=== PATIENT | male | born 1975 | race Caucasian/White ===

== ENCOUNTER 2017-01-16 08:06 | Emergency (ER) | payer OTHER ==
[2017-01-16] MEDS ORDERED: CETIRIZINE 10 MG TABLET PO STA (08:17)
[2017-01-16] MEDS ORDERED: DEXAMETHASONE 10 MG/ML VIAL IVP STA (08:17)
[2017-01-16] MEDS ORDERED: FAMOTIDINE 20 MG/50 ML 50 ML IV ONE ×2 (08:18→08:31)
--- NOTE | 2017-01-16 08:22 | ED Physician Documentation ---
History of Present Illness - Stated complaint Stated Complaint: ALLERGIC REACTION - Chief complaint Chief Complaint: Allergic Rx - Additonal information Additional information: hx from pt 41 male hx recurrent allergic / anaphylactic rxn unknown trigger despite allergy work up including skin testing carries an epi pen at all times was being txed with xolair as well not on ACEI this AM had lower lip and right face swelling went to [facility] and was sent to ER by [facility] no meds given yet pt has his epi pen but has no tongue or throat swelling no PITA so did not use Review of Systems Constitutional: denies: Fever, Chills Ears: reports: Other (swelling) Respiratory: denies: Dyspnea GI: denies: Abdominal Pain, Nausea, Vomiting Immunocompromised: denies: Immunocompromised PD PAST MEDICAL HISTORY - Past Medical History Past Medical History: No - Past Surgical History Past Surgical History: Yes - Present Medications Home Medications: Ambulatory Orders Medication Instructions Recorded Confirmed Cetirizine [ZyrTEC] 10 mg PO DAILY 01/16/17 01/16/17 Cetirizine [ZyrTEC] 10 mg PO DAILY #5 tablet 01/16/17 predniSONE [Deltasone] 60 mg PO DAILY 5 Days tablet 01/16/17 raNITIdine [Zantac] 150 mg PO BID #10 tablet 01/16/17 raNITIdine [Zantac] 150 mg PO DAILY 01/16/17 01/16/17 - Allergies Allergies/Adverse Reactions: Allergies Allergy/AdvReac Type Severity Reaction Status Date / Time No Known Drug Allergies Allergy Verified 01/16/17 08:15 - Social History Does the pt smoke?: No Smoking Status: Never smoker Does the pt drink ETOH?: No Does the pt have substance abuse?: No - Immunizations Immunizations are current?: Yes PD ED PE NORMAL - Vitals Vital signs reviewed: Yes - General General: Alert and oriented X 3 - HEENT HEENT: Other (+ lip swelling but not tongue or uvula) - Cardiac Cardiac: RRR - Respiratory Respiratory: No respiratory distress, Clear bilaterally, Other (no wheeze or stridor) - Derm Derm: Normal color, Other (no hives) - Neuro Neuro: Alert and oriented X 3 - Psych Psych: Normal mood Results - Vitals Vitals: Vital Signs - 24 hr 01/16/17 01/16/17 08:11 09:30 Temperature 36.4 C L 36.4 C L Heart Rate 84 73 Respiratory 18 16 Rate Blood Pressure 134/87 H 109/80 O2 Saturation 99 100 Oxygen O2 Source Room air PD MEDICAL DECISION MAKING - ED course ED course: pt not needeing epi gave steroids zyrtec (driving) and pepcid watched 2 hr gradually improving Departure - Departure Disposition: Home, Self Care Clinical Impression: Angioedema Qualifiers: Encounter type: initial encounter Qualified Code(s): T78.3XXA - Angioneurotic edema, initial encounter Condition: Good Instructions: ED Angioedema Follow-Up: [facility] [Provider Group] (for ongoing care and further work upo to try and identify the etiology of your reactions) Prescriptions: Cetirizine [ZyrTEC] 10 mg PO DAILY #5 tablet predniSONE [Deltasone] 60 mg PO DAILY 5 Days tablet raNITIdine [Zantac] 150 mg PO BID #10 tablet Comments: Continue to carry your epi pen at all times just incase. Take the zyrtec, prednisone and zantac for another 5 days Follow up at [facility] next week Return to the ER if worse Forms: Activity restrictions
[2017-01-16] MEDS ORDERED: CETIRIZINE 10 MG TABLET ONE (08:30)
[2017-01-16] MEDS ORDERED: DEXAMETHASONE 10 MG/ML VIAL ONE (08:31)
[2017-01-16 11:02] VITALS: BP 117/83
== END 2017-01-16 11:02 | disposition home or self-care (01) ==
LOC: ED 08:06
DX: T78.3XXA Angioneurotic edema, initial encounter (principal); X58.XXXA Exposure to other specified factors, initial encounter
CPT/HCPCS: 36415; 96365; 96375; 99283; 99284; A9270

== ENCOUNTER 2017-01-26 08:07 | Emergency (ER) | payer OTHER ==
[2017-01-26 08:16] VITALS: BP 132/87
[2017-01-26] MEDS ORDERED: DEXAMETHASONE 10 MG/ML VIAL PO STA (08:59)
--- NOTE | 2017-01-26 09:06 | ED Physician Documentation ---
History of Present Illness - Stated complaint Stated Complaint: ALLERGIC REACTION-FACE SWELLING - Chief complaint Chief Complaint: Allergic Rx - History obtained from History obtained from: Patient - History of Present Illness Timing: Today - Additonal information Additional information: 41-year-old male with a history of idiopathic angioedema has been off of his xolair for 2 months and he has developed recurrent episodes. He had previously been on a regimen of Zyrtec and Zantac with occasional outbreaks. He has stopped taking his Zyrtec and Zantac when he was on the xolair. He was seen in the emergency department with facial swelling 2 weeks ago and placed on a 5 day course of prednisone. He is finished the prednisone. And this morning has developed swelling of the left upper lip and cheek.He brings in photographs of himself with various amounts of swelling on his face from prior episodes. Review of Systems Constitutional: denies: Fever, Chills Eyes: denies: Decreased vision Ears: denies: Ear pain Nose: denies: Congestion Throat: denies: Sore throat Cardiac: denies: Chest pain / pressure Respiratory: denies: Dyspnea, Cough GI: denies: Abdominal Pain, Nausea, Vomiting : denies: Dysuria, Frequency Skin: denies: Rash Musculoskeletal: denies: Neck pain, Back pain, Extremity pain PD PAST MEDICAL HISTORY - Past Medical History Past Medical History: No - Past Surgical History Past Surgical History: Yes - Present Medications Home Medications: Ambulatory Orders Medication Instructions Recorded Confirmed Cetirizine [ZyrTEC] 10 mg PO DAILY 01/16/17 01/16/17 Cetirizine [ZyrTEC] 10 mg PO DAILY #5 tablet 01/16/17 predniSONE [Deltasone] 60 mg PO DAILY 5 Days tablet 01/16/17 raNITIdine [Zantac] 150 mg PO BID #10 tablet 01/16/17 raNITIdine [Zantac] 150 mg PO DAILY 01/16/17 01/16/17 - Allergies Allergies/Adverse Reactions: Allergies Allergy/AdvReac Type Severity Reaction Status Date / Time No Known Drug Allergies Allergy Verified 01/16/17 08:15 - Social History Does the pt smoke?: No Smoking Status: Never smoker Does the pt drink ETOH?: No Does the pt have substance abuse?: No - Immunizations Immunizations are current?: Yes PD ED PE NORMAL - Vitals Vital signs reviewed: Yes - General General: Alert and oriented X 3, No acute distress, Well developed/nourished - HEENT HEENT: Atraumatic, PERRL, EOMI, Ears normal, Moist mucous membranes, Pharynx benign, Other (There is swelling to the upper lip on the left that extends into the upper cheek. There is no erythema associated with this there is no angioedema of the pharynx or uvula.) - Neck Neck: Supple, no meningeal sign, No bony TTP - Cardiac Cardiac: RRR, No murmur - Respiratory Respiratory: No respiratory distress, Clear bilaterally - Abdomen Abdomen: Soft, Non tender - Back Back: No CVA TTP, No spinal TTP - Derm Derm: Normal color, Warm and dry, No rash - Extremities Extremities: No deformity, No edema - Neuro Neuro: No motor deficit, No sensory deficit - Psych Psych: Normal mood, Normal affect Results - Vitals Vitals: Vital Signs - 24 hr 01/26/17 08:13 Temperature 36.1 C L Heart Rate 79 Respiratory 16 Rate Blood Pressure 132/87 H O2 Saturation 98 Oxygen O2 Source Room air PD MEDICAL DECISION MAKING - ED course Complexity details: reviewed old records, re-evaluated patient, considered differential, d/w patient, d/w family ED course: 41-year-old male with a history of idiopathic angioedema has stopped his biologic for control of this and has episodes occurring now. He has identified a practitioner in [place] but does provide xolair but he has not yet made contact. Here in the emergency department he is treated with dexamethasone 10 mg orally and we will place him back onto his Zyrtec and Zantac. Departure - Departure Disposition: 01 Home, Self Care Clinical Impression: Angioedema Qualifiers: Encounter type: initial encounter Qualified Code(s): T78.3XXA - Angioneurotic edema, initial encounter Condition: Stable Instructions: ED Angioedema Follow-Up: [facility] [Provider Group] Comments: Resume regular use of your Zantac and Zyrtec until you are back on your biologic.
[2017-01-26] MEDS ORDERED: DEXAMETHASONE 10 MG/ML VIAL ONE (09:18)
== END 2017-01-26 09:43 | disposition home or self-care (01) ==
LOC: ED 08:07
DX: T78.3XXA Angioneurotic edema, initial encounter (principal)
CPT/HCPCS: 99283